=== PATIENT | female | born 2000 | race Caucasian/White ===

== ENCOUNTER 2024-09-08 16:56 | Emergency (ER) | payer BC, SELFPAY ==
[2024-09-08 16:58] VITALS: BP 125/74
--- NOTE | 2024-09-08 18:21 | ED.GENMED ---
History of Present Illness
General
Chief Complaint: Abdominal Symptoms
Source: patient
Exam Limitations: none
Time Seen by Provider: 09/08/24 18:12
Nursing documentation reviewed up to this point in time: agreed with
History of Present Illness
History of Present Illness:
Patient is a 24-year-old female who presents to the ER for evaluation. Patient reports in the middle the night she woke up last night sweaty dizzy and nauseous and then vomited dark emesis. She reports it was like coffee grounds. She looked up on
the unit this morning and was very concerned and presented here to the ER. She reports her stool this morning when she went to the bathroom was half normal brown half dark. She has not moved her bowels since. She denies any associate abdominal
pain now. Denies any fever chills. She has been able to drink water today. she does have a history of reflux and had endoscopy around 3 years ago.
She is supposed be taking omeprazole but stopped taking it but does take Pepcid as needed.
Review of Systems
Review of Systems
Allergies reviewed?: Yes
All Other Systems: ROS reviewed and negative except as documented in HPI and ROS
Constitutional: Reports no symptoms; Denies fever
Respiratory: Reports no symptoms
Cardiac: Reports no symptoms
ABD/GI: Reports other (dark emesis )
: Reports no symptoms
Musculoskeletal: Reports no symptoms
Skin: Reports no symptoms
Neurological: Reports no symptoms
Psychiatric: Reports no symptoms
Phy Exam
General Physical Exam
General Presentation: no apparent distress
General age: appears stated age
General Skin: warm and dry
General Habitus: normal
General Mental: alert
General Hydration: appears well hydrated
Gastrointestinal Exam
Gastrointestinal Exam: normal bowel sounds, non tender, soft and other (brown stool heme neg )
Neurological Exam
Neurological Exam: alert and oriented x3
Musculoskeletal Exam
Musculoskeletal Exam: full ROM
Skin Exam
Skin Exam: normal color and warm/dry
Psychiatric Exam
Psychiatric Exam: normal mood/affect
Course
Orders/Labs/Results
Orders:
Orders
09/08/24 18:41
IV Insert/Care/Rem.- Treatment PRN
09/08/24 18:42
Test Result ONCE
09/08/24 18:44
Complete Blood Count/With Diff Urgent
Comprehensive Metabolic Panel Urgent
HCG, Serum Qualitative Screen Urgent
Lipase Urgent
Abnormal Lab Results
09/08/24
18:44
MCH 31.1 H pg
(27.0-31.0)
RDW 11.4 L %
(11.5-14.5)
09/08/24 18:44
09/08/24 18:44
Vital Signs
Initial and Last Documented VS:
Initial Vital Signs
Temp Pulse Resp BP Pulse Ox
98.4 F 95 16 125/74 96
09/08/24 16:58 09/08/24 16:58 09/08/24 16:58 09/08/24 16:58 09/08/24 16:58
Last Documented Vital Signs
Temp Pulse Resp BP Pulse Ox
98.4 F 60 16 110/71 99
09/08/24 16:58 09/08/24 19:20 09/08/24 19:20 09/08/24 19:20 09/08/24 19:20
Glazier Stained Glass consulted with Physician
Glazier Stained Glass consulted with physician?: Yes
Name of Physician Consulted: Bryce
MDM/Problems Addressed
Differential Diagnosis Includes:
Not limited to GI bleed gastritis
MDM/Problems Addressed:
Patient described 1 episode of vomiting which she described as coffee-ground emesis in the middle of the night. She reports that she did move her bowels and part of the stool was dark part was normal brown color. They patient has been fine
drinking and eating. No prior history of GI bleed she is not on blood thinners. Rectal exam done : brown heme-negative stool.
Patient with stable labs including normal hemoglobin patient no acute distress nontoxic. Patient stopped taking her Prilosec. Will have patient restart Prilosec a new prescription was sent to her pharmacy and follow-up closely with her GI
specialist. She does have a GI specialist in [place] who did endoscopy several years ago. She will also was given local GI. She is to return if any worsening of symptoms.
Case reviewed with ED physician .
Chronic conditions affecting care:
GERD
*Critical Care Note
Total Time (30-74mins, 75-104mins- exclusive of procedures): Not Applicable
ED Attending Note
-
Portions of this chart may have been created with voice recognition software.� Occasional wrong word or��sound alike� substitutions may have occurred due to the inherent limitations of voice recognition software.
Discharge Plan
Departure
Patient Disposition: Home (Routine Discharge)
Date of Disposition: 09/08/24
Time of Disposition: 19:46
Patient with high blood pressure during this ER visit?: No
Condition: Fair
Covid-19: Not Applicable
Discharge Problem:
Gastritis
Instructions: Gastritis (DC)
Prescriptions:
New
omeprazole 40 mg capsule,delayed release(DR/EC)
40 mg PO DAILY Qty: 14 0RF
Referrals:
CAIO DICKERSON [Other]
Sandra Quinones DO [Active] -
Activity Restrictions/Additional Instructions:
As discussed restart your Prilosec. A new prescription was sent to your pharmacy.
Avoid highly acidic foods spicy foods caffeine chocolate alcohol. Follow-up with your GI specialist as soon as possible please call tomorrow to make an appointment return if any worsening of symptoms.
Interventions
Interventions:
*Risk Screen - Suicide Last Done: 09/08/24 18:42
*General Assessment Last Done: 09/08/24 18:40
*Neglect/Abuse Screening Last Done: 09/08/24 18:42
ED- Fall Risk Assessment Last Done: 09/08/24 18:39
*ED COVID-19 Vaccine History Last Done: 09/08/24 18:40
RW-Mcvkpa-Txuhcuhvhm Assessment Last Done: 09/08/24 18:41
Discharge Date and Time
Print Language: KOREAN
[2024-09-08 18:39] VITALS: BMI 18.9
[2024-09-08 18:54] VITALS: BP 107/67
[2024-09-08 18:56] LABS: % Basophils 0.5 % (0-2); % Eosinophils 1.4 % (0-6); % Immature Granulocytes 0.3 % (0-0.5); % Lymphocytes 35.4 % (20.5-51.1); % Monocytes 7.2 % (1.7-9.3); % Neutrophils 55.2 % (42.2-75.2); Absolute Eosinophils 0.1 10^3/uL (0-0.7); Absolute Lymphocytes 2.8 10^3/uL (1.2-3.4); Absolute Monocytes 0.6 10^3/uL (0.1-0.6); Absolute Neutrophils 4.3 10^3/uL (1.4-6.5); Hematocrit 39.2 % (37.0-47.0); Hemoglobin 13.7 g/dL (12.0-16.0); Mean Corp Hgb Conc. 34.9 g/dL (33.0-37.0); Mean Corpuscular Hgb 31.1 pg (27.0-31.0); Mean Corpuscular Volume 89.1 fL (81.0-99.0); Mean Platelet Volume 9.3 fL (7.4-10.4); Nucleated Red Blood Cells % 0 %; Platelet Count 244 10^3/uL (130-400); Red Cell Dist. Width 11.4 % (11.5-14.5); White Blood Cell Count 7.8 10^3/uL (4.8-10.8)
[2024-09-08 19:00] VITALS: BP 102/69
[2024-09-08 19:12] LABS: HCG, Serum Qualitative Screen Negative
[2024-09-08 19:14] LABS: ALT (SGPT) 21 U/L (0-35); AST (SGOT) 22 U/L (14-36); Albumin 4.8 g/dl (3.5-5.0); Alkaline Phosphatase 52 U/L (38-126); Blood Urea Nitrogen 12 mg/dl (7-17); Carbon Dioxide 26 mmol/L (22-30); Chloride 103 mmol/L (98-107); Estimated Creatinine Clearance 101 ml/min; Glucose 87 mg/dl (70-99); Lipase 50 U/L (23-300); Potassium 4.3 mmol/L (3.5-5.1); Sodium 142 mmol/L (135-145); Total Bilirubin 0.6 mg/dl (0.2-1.3); eGFR > 60.00
[2024-09-08 19:20] VITALS: BP 110/71
[2024-09-08 20:28] VITALS: BP 104/70
[2024-09-08 20:40] VITALS: BP 104/70
== END 2024-09-08 20:40 | disposition home or self-care (01) ==
LOC: EMR 16:56
PROVIDERS: Nurse Practitioner; EMERGENCY PHYSICIAN Emergency Medicine
DX: K29.70 Gastritis, unspecified, without bleeding (principal); K21.9 Gastro-esophageal reflux disease without esophagitis
CPT/HCPCS: 99283; 80053; 83690; 84703; 85025

== ENCOUNTER → 2024-10-16 10:34 | Outpatient (REF) | payer BC, SELFPAY | LOC: HWRAD 10:34 | PROVIDERS: ATTENDING PHYSICIAN Obstetrics & Gynecology | DX: R10.2 Pelvic and perineal pain (principal) | CPT/HCPCS: 76830; 76856 ==